=== PATIENT | female | born 1990 | race Caucasian/White ===

== ENCOUNTER → 2016-12-12 | Outpatient (CLI) | payer OTHER ==
[~2016-12-12] MED LIST: COLA100C3 PO; FERR325T3 PO; IBUP80TA PO; PR NPAK3 PO; PRED15EL PO; PRENTAB53 PO
--- NOTE | 2016-12-12 13:40 | REP ---
Chest two views HISTORY: Chest pain Comparison: None The lungs are clear. The heart is normal in size. The pulmonary vasculature is normal in appearance. The bony structure is intact. IMPRESSION: No acute disease. Signed by Kalpesh Warren MD 12/12/2016 01:31 P
== END ==
LOC: M WUC 10:01
PROVIDERS: ATTEND Physician Assistant
DX: R07.89 Other chest pain (principal)